=== PATIENT | male | born 1995 ===

== ENCOUNTER 2020-06-25 11:22 | Emergency (ER) | payer MEDICAID ==
[~2020-06-25] VITALS: Ht 175.3 cm; Wt 84.1 kg
[2020-06-25 11:38] VITALS: Ht 175.3 cm; Wt 84.1 kg
[2020-06-25 12:48] LABS: BASOPHILS 0.2 % (0-2); EOSINOPHILS 1.3 % (0-7); HEMATOCRIT 50.1 % (42.0-54.0); HEMOGLOBIN 16.9 g/dL (13.5-17.5); IMMATURE GRANULOCYTES 0.4 % (0-5); LYMPHOCYTES 19.8 % (15-50); MCHC 33.7 g/dL (31.0-37.0); MCV 88.8 fL (80.0-100.0); MEAN PLATELET VOLUME 12.3 fL (7.4-10.4); MONOCYTES 8.4 % (2-11); NEUTROPHILS 69.9 % (40-80); PLATELET COUNT 191 10x3/uL (130-400); RBC 5.64 10x6/uL (4.20-6.10); WBC 8.2 10x3/uL (4.8-10.8)
[2020-06-25 12:52] LABS: CALC OSMOLALITY 272 mosm/kg (275-300); CALCIUM 8.7 mg/dL (8.5-10.1); CARBON DIOXIDE 27.8 mmol/L (21.0-32.0); CHLORIDE - SERUM 103 mmol/L (98-107); CREATININE - SERUM 0.8 mg/dL (0.6-1.3); GLUCOSE 73 mg/dL (74-106); POTASSIUM - SERUM 3.7 mmol/L (3.5-5.1); SODIUM 138 mmol/L (136-145); UREA NITROGEN 6 mg/dL (7-18); eGFR NON AFRICAN AMERICAN > 90 mL/min (90-120)
[2020-06-25] MEDS ORDERED: SYMBICORT 80-10.2 GM INH (12:56)
[2020-06-25] MEDS ORDERED: TESSALON PERLE100 MG PO (12:56)
[2020-06-25 12:59] LABS: ALBUMIN 3.9 g/dL (3.4-5.0); ALKALINE PHOSPHATASE 65 U/L (30-120); ALT (SGPT) 13 U/L (10-68); BILIRUBIN - TOTAL 0.47 mg/dL (0.2-1.3); PROTEIN - SERUM 7.6 g/dL (6.4-8.2)
[2020-06-25 13:23] VITALS: BP 129/76
== END 2020-06-25 13:33 | disposition home or self-care (01) ==
LOC: D.ER 11:22
PROVIDERS: Family Medicine
DX: R05 Cough (principal)

== ENCOUNTER 2020-06-28 20:25 | Emergency (ER) | payer MEDICAID ==
[~2020-06-28] VITALS: Ht 175.3 cm; Wt 84.1 kg
[~2020-06-28 20:25] MED LIST: SYMBICORT 80-10.2 GM INH; TESSALON PERLE100 MG PO
== END 2020-06-28 21:30 | disposition home or self-care (01) ==
LOC: D.ER 20:25
DX: D23.9 Other benign neoplasm of skin, unspecified (principal); L98.9 Disorder of the skin and subcutaneous tissue, unspecified

== ENCOUNTER 2020-07-02 06:54 | Emergency (ER) | payer MEDICAID ==
[~2020-07-02] VITALS: Ht 175.3 cm; Wt 84.1 kg
[2020-07-02 06:58] VITALS: Ht 175.3 cm; Wt 84.1 kg
[2020-07-02 08:34] LABS: BASOPHILS 0.1 % (0-2); EOSINOPHILS 1.1 % (0-7); HEMATOCRIT 46.7 % (42.0-54.0); HEMOGLOBIN 15.9 g/dL (13.5-17.5); IMMATURE GRANULOCYTES 0.3 % (0-5); LYMPHOCYTES 18.3 % (15-50); MCH 29.7 pg (26.0-34.0); MCV 87.1 fL (80.0-100.0); MEAN PLATELET VOLUME 12.1 fL (7.4-10.4); MONOCYTES 11.9 % (2-11); NEUTROPHILS 68.3 % (40-80); PLATELET COUNT 168 10x3/uL (130-400); RBC 5.36 10x6/uL (4.20-6.10); WBC 7.1 10x3/uL (4.8-10.8)
[2020-07-02 08:43] LABS: APTT 29.9 SECONDS (22.8-39.4); INR 0.98 (0.85-1.17); PROTIME 12.9 SECONDS (11.6-15.0)
[2020-07-02 08:45] LABS: CALC OSMOLALITY 277 mosm/kg (275-300); CALCIUM 8.9 mg/dL (8.5-10.1); CARBON DIOXIDE 27.8 mmol/L (21.0-32.0); CHLORIDE - SERUM 106 mmol/L (98-107); CREATININE - SERUM 0.8 mg/dL (0.6-1.3); GLUCOSE 102 mg/dL (74-106); POTASSIUM - SERUM 3.3 mmol/L (3.5-5.1); SODIUM 141 mmol/L (136-145); UREA NITROGEN 5 mg/dL (7-18); eGFR NON AFRICAN AMERICAN > 90 mL/min (90-120)
[2020-07-02 09:01] LABS: ALBUMIN 3.9 g/dL (3.4-5.0); ALKALINE PHOSPHATASE 53 U/L (30-120); ALT (SGPT) 15 U/L (10-68); BILIRUBIN - TOTAL 0.55 mg/dL (0.2-1.3); CKMB 0.9 U/L (0.0-3.6); CREATINE KINASE 109 UL (21-232); PROTEIN - SERUM 7.3 g/dL (6.4-8.2)
[2020-07-02 09:03] LABS: TROPONIN-I < 0.017 ng/mL (0.000-0.060)
[2020-07-02 10:51] VITALS: BP 142/75
== END 2020-07-02 10:40 | disposition left against medical advice (07) ==
LOC: D.ER 06:54
PROVIDERS: Family Medicine
DX: Q85.00 Neurofibromatosis, unspecified (principal); R53.1 Weakness